=== PATIENT | female | born 1985 | race Hispanic/Latino ===

== ENCOUNTER 2017-11-07 01:40 | Emergency (ER) | payer BC ==
[2017-11-07] MEDS ORDERED: TDAP Vaccine 0.5 mL Syr IM ONE (02:21)
[2017-11-07 02:49] LABS: BASO # 0.04 K/mm3 (0.0-2.0); BASO % 0.7 % (0.0-3.0); EOS # 0.1 (0.0-0.7); GRAN # 2.19 (1.4-6.5); GRAN % 37.7 % (50.0-68.0); HEMOGLOBIN 13.7 g/dL (12.0-16.0); LYMPH # 3.2 (1.2-3.4); LYMPH % 54.8 % (22.0-35.0); MEAN CELL VOLUME 89.3 fl (80.0-105.0); MEAN CORPUSCULAR HEMOGLOBIN 30.5 pg (25.0-35.0); MEAN CORPUSCULAR HGB CONC 34.2 g/dl (31.0-37.0); MEAN PLATELET VOLUME 10.9 fl (7.0-11.0); MONO # 0.3 (0.1-0.6); MONO % 5.8 % (1.0-6.0); RBC 4.49 10^6/uL (3.5-6.1); RED CELL DISTRIBUTION WIDTH 12.6 % (11.5-14.5); WHITE BLOOD COUNT 5.8 10^3/ul (4.5-11.0)
--- NOTE | 2017-11-07 03:01 | ED PDOC ---
Arrival/HPI - General Chief Complaint: Trauma Time Seen by Provider: 11/07/17 02:13 Historian: Patient, EMS, Police - History of Present Illness Narrative History of Present Illness (Text): 11/07/17 02:58 A 32 year old female, with no known past medical history, is brought into the emergency department by [facility] s/p fall at a bar sustaining a laceration to the posterior head. Patient notes that she wants to go home and is feeling better. Patient does not recall her last tetanus shot. The patient denies fevers, chills, headache, dizziness, sore throat, cough, chest pain, shortness of breath, dyspnea on exertion, abdominal pain, nausea, vomiting, diarrhea, neck/back pain, urinary/bowel changes or any other complaint. Time/Duration: Prior to Arrival Symptom Onset: Sudden Symptom Course: Unchanged Activities at Onset: Rest, Light Context: Other (Bar) Past Medical History - Provider Review Nursing Documentation Reviewed: Yes - Psychiatric Hx Substance Use: No - Surgical History Hx Tonsillectomy: Yes Family/Social History - Physician Review Nursing Documentation Reviewed: Yes Family/Social History: No Known Family HX Smoking Status: Unknown If Ever Smoked Hx Alcohol Use: Yes Hx Substance Use: No Allergies/Home Meds Allergies/Adverse Reactions: Allergies No Known Allergies Allergy (Verified 11/07/17 01:46) Home Medications: Home Meds Medication Instructions Recorded Confirmed Unobtainable 11/07/17 11/07/17 Review of Systems - Physician Review All systems were reviewed & negative as marked: Yes - Review of Systems Constitutional: absent: Fevers Respiratory: absent: SOB, Cough Cardiovascular: absent: Chest Pain, HALL[place] Gastrointestinal: absent: Abdominal Pain, Stool Changes, Diarrhea, Nausea, Vomiting Genitourinary Female: absent: Urine Output Changes Musculoskeletal: absent: Back Pain, Neck Pain Skin: Laceration (Laceration to posterior head.) Neurological: absent: Headache, Dizziness Physical Exam Vital Signs Reviewed: Yes Vital Signs Temp Pulse Resp BP Pulse Ox 11/07/17 14:08 98.1 F 94 H 19 99 11/07/17 11:40 88 19 116/79 97 11/07/17 09:05 98.0 F 92 H 19 98 11/07/17 06:46 88 18 123/64 98 11/07/17 04:47 90 20 120/60 99 11/07/17 02:12 98.1 F 100 H 20 112/60 100 Temperature: Afebrile Blood Pressure: Normal Pulse: Tachycardic Respiratory Rate: Normal Appearance: Positive for: Well-Appearing, Non-Toxic, Comfortable Pain Distress: None Mental Status: Positive for: Alert and Oriented X 3 - Systems Exam Head: Present: Normocephalic, Laceration (3 cm laceration to posterior scalp. Vertical. Linear.) Pupils: Present: PERRL Extroacular Muscles: Present: EOMI Conjunctiva: Present: Normal Mouth: Present: Moist Mucous Membranes Neck: Present: Normal Range of Motion Respiratory/Chest: Present: Clear to Auscultation, Good Air Exchange. No: Respiratory Distress, Accessory Muscle Use Cardiovascular: Present: Regular Rate and Rhythm, Normal S1, S2. No: Murmurs Abdomen: No: Tenderness, Distention, Peritoneal Signs Back: Present: Normal Inspection Upper Extremity: Present: Normal Inspection. No: Cyanosis, Edema Lower Extremity: Present: Normal Inspection. No: Edema Neurological: Present: GCS=15, CN II-XII Intact, Speech Normal Skin: Present: Warm, Dry, Normal Color. No: Rashes Psychiatric: Present: Alert, Oriented x 3, Intoxicated Medical Decision Making ED Course and Treatment: 11/07/17 03:03 Impression: A 32 year old female is brought into the emergency department s/p fall with laceration to back of head. Patient with unknown tetanus status. Will seek labs and imaging. Plan: -- Head CT -- Cervical Spine CT -- Labs -- Haldol and Boostrix Vaccine -- Reassess and disposition Prior Visits: Notes and results from previous visits were reviewed. Progress Notes: 11/07/17 03:05: Patient being uncooperative with staff, wanting to leave, clearly intoxicated. Restraints and Haldol ordered. CT Cervical Spine Without Intravenous Contrast EXAM DATE/TIME: 11/07/2017 2:16 AM Dictated and Authenticated by: René George MD 11/07/2017 5:22 AM Eastern Time ([place] & [place]) IMPRESSION: No acute findings. CT Head Without Intravenous Contrast EXAM DATE/TIME: 11/07/2017 2:16 AM Dictated and Authenticated by: René George MD 11/07/2017 5:21 AM Eastern Time ([place] & [place]) IMPRESSION: No acute findings. PROCEDURE: LACERATION REPAIR Performed by the emergency provider Location: posterior scalp Length: 3 cm Description: clean wound edges, no foreign bodies Distal CMS: Normal. No deficits. Neurovascularly intact. Anesthesia: Lidocaine 1% w/ epi Preparation: The wound was cleaned with NS and [place]. The area was prepped and draped in the usual sterile fashion. Exploration: The wound was explored and no foreign bodies were found. Procedure: The wound was closed with zoe loose} approximation. In total, 9 were used. Post-Procedure: Good closure and hemostasis. The patient tolerated the procedure well and there were no complications. CSM remains intact. Post procedure dressing applied 11/07/17 06:35 clears @ 1400 will sign out to oncoming physician. 11/07/17 06:37 - Lab Interpretations Lab Results: 11/07/17 02:25 11/07/17 02:25 Lab Results 11/07/17 02:25: Beta HCG, Quant < 2.39, Alcohol, Quantitative 394 H* 11/07/17 02:25: Sodium 152 H, Potassium 4.4, Chloride 108 H, Carbon Dioxide 28, Anion Gap 21 H, BUN 11, Creatinine 0.6 L, Est GFR ( Amer) > 60, Est GFR ( Non-Af Amer) > 60, Random Glucose 94, Calcium 10.1, Total Bilirubin 0.2, AST 29 , ALT 20, Alkaline Phosphatase 56, Total Protein 8.1, Albumin 4.9 H, Globulin 3.2, Albumin/Globulin Ratio 1.5 11/07/17 02:25: WBC 5.8, RBC 4.49, Hgb 13.7, Hct 40.1, MCV 89.3, MCH 30.5, MCHC 34.2, RDW 12.6, Plt Count 193, MPV 10.9, Gran % 37.7 L, Lymph % (Auto) 54.8 H, [place] % (Auto) 5.8, Eos % (Auto) 1.0 L, Baso % (Auto) 0.7, Gran # 2.19, Lymph # ( Auto) 3.2, [place] # (Auto) 0.3, Eos # (Auto) 0.1, Baso # (Auto) 0.04 11/07/17 01:46: POC Glucose (mg/dL) 86 I have reviewed the lab results: Yes - RAD Interpretation Radiology Orders: 11/07/17 02:16 CERVICAL SPINE W/O CONTRAST [CT] Stat HEAD W/O CONTRAST [CT] Stat - Medication Orders Current Medication Orders: Discontinued Medications Acetaminophen (Tylenol 325mg Tab) 650 mg PO STAT STA Stop: 11/07/17 12:24 Last Admin: 11/07/17 12:25 Dose: 650 mg MAR Pain/Vitals Document 11/07/17 12:25 [email or web address] (Rec: 11/07/17 12:26 [email or web address] [id number]) Pain Reassessment Is This A Pain ReAssessment? No Sleep Is patient sleeping during reassessment? No Presence of Pain Presence of Pain Yes Pain Scale Used Pain Scale Used Numeric Location Pain Location Body Conservation Engineer Description Constant Intensity 7 Scale Used Numeric Pain Behavior Facial Grimacing Aggravating Factors Changing Position Alleviating Factors Medication Haloperidol Lactate (Haldol) 5 mg IM STAT STA PRN Reason: Protocol Stop: 11/07/17 02:16 Last Admin: 11/07/17 05:03 Dose: Lidocaine/Epinephrine (Lidocaine/Epi 1% 1:302615 20 Ml) 1 ml IJ ONCE ONE Stop: 11/07/17 05:30 Tetanus/Reduced Diphtheria/Acell Pertussis (Boostrix Vaccine Inj) 0.5 ml IM .ONCE ONE Stop: 11/07/17 02:22 Last Admin: 11/07/17 05:12 Dose: - Scribe Statement The provider has reviewed the documentation as recorded by the Scribe Yudi Tellez Provider Scribe Attestation: All medical record entries made by the Scribe were at my direction and personally dictated by me. I have reviewed the chart and agree that the record accurately reflects my personal performance of the history, physical exam, medical decision making, and the department course for this patient. I have also personally directed, reviewed, and agree with the discharge instructions and disposition. Disposition/Present on Arrival - Present on Arrival Any Indicators Present on Arrival: No History of DVT/PE: No History of Uncontrolled Diabetes: No Urinary Catheter: No History of Decub. Ulcer: No History Surgical Site Infection Following: None - Disposition Have Diagnosis and Disposition been Completed?: Yes Diagnosis: Laceration of scalp, Alcohol intoxication, Head injury Disposition: HOME/ ROUTINE Disposition Time: 07:00 (signed out) Patient Plan: Other (signed out) Condition: GOOD Discharge Instructions (ExitCare): Alcohol Use - When Is Drinking a Problem?, Closed Head Injury (DC), Laceration Repair With Zoe (DC), Headache, Adult ( DC), Alcohol Abuse and Alcoholism (DC) Additional Instructions: For any headaches, any nausea or vomiting, any tremors or shakes, any chest pain or palpitations, any lightheadedness or dizziness, any unsteadiness, any back pain, any abdominal pain, any bloody urine or stool, any redness or bleeding or pus or drainage, any persistent or worsening symptoms, get rechecked. Follow-up with your physician or return to ER in 5-7 days for staple removal. Take tylenol as needed for pain. Referrals: FAMILY PROVIDER,NO [Primary Care Provider] - Follow up with primary Forms: [employer] ([place])
[2017-11-07 03:06] LABS: ALB/GLOB RATIO 1.5 (1.1-1.8); ALBUMIN 4.9 g/dL (3.0-4.8); ALT/SGPT 20 U/L (7-56); AST/SGOT 29 U/L (14-36); BLOOD UREA NITROGEN 11 mg/dL (7-21); CALCIUM 10.1 mg/dL (8.4-10.5); GFR NON-AFRICAN AMERICAN > 60
[2017-11-07] MEDS ORDERED: Lidocaine/Epi 1% 1:100000 20 ML IJ ONE (05:29)
--- NOTE | 2017-11-07 07:52 | ED PDOC ---
Physical Exam Vital Signs Temp Pulse Resp BP Pulse Ox 11/07/17 11:40 88 19 116/79 97 11/07/17 09:05 98.0 F 92 H 19 98 11/07/17 06:46 88 18 123/64 98 11/07/17 04:47 90 20 120/60 99 11/07/17 02:12 98.1 F 100 H 20 112/60 100 Medical Decision Making ED Course and Treatment: 11/07/17 07:05 Case endorsed to me by Dr. Drew Galicia. Pending Sobriety, reassess, and disposition. 11/07/17 13:00 On re-evaluation, patient is complaining of a posterior headache. On re- examination, patient has a scalp laceration posteriorly that has been stapled on the prior shift. Reviewed Head CT performed which was unremarkable. Patient is also complaining of mild nausea, but denies any neck pain, chest pain, or shortness of breath. Patient is not tremulous or tachycardic. Patient denies any Suicidal Ideation, or Homicidal Ideation. Plan is to continue observation and monitor symptoms after administering Tylenol. 11/07/17 14:05 Re-examination. Headache significantly improved after tylenol. No further nausea. She is pleasant and cooperative. She has normal speech. Normal finger to nose. NO slurred speech. No focal weakness or gait disturbance. No tremors or shaking. Patient is noted to have no suicidal or homicidal ideation and wishes to go home. She has been informed of all labs, treatment, and imaging study results. Hypernatremia noted on prior ordered labs although I feel this was somewhat related to patient's elevated alcohol level and she is asymptomatic on re-evaluation, eating, with no nausea. She is tolerating oral intake and neurologically intact. Have stressed need for close follow-up with PMD or neurologist for any persistent headaches. Advised staple removal in 5-7 days. 11/07/17 14:46 - Lab Interpretations Lab Results: 11/07/17 02:25 11/07/17 02:25 Lab Results 11/07/17 02:25: Beta HCG, Quant < 2.39, Alcohol, Quantitative 394 H* 11/07/17 02:25: Sodium 152 H, Potassium 4.4, Chloride 108 H, Carbon Dioxide 28, Anion Gap 21 H, BUN 11, Creatinine 0.6 L, Est GFR ( Amer) > 60, Est GFR ( Non-Af Amer) > 60, Random Glucose 94, Calcium 10.1, Total Bilirubin 0.2, AST 29 , ALT 20, Alkaline Phosphatase 56, Total Protein 8.1, Albumin 4.9 H, Globulin 3.2, Albumin/Globulin Ratio 1.5 11/07/17 02:25: WBC 5.8, RBC 4.49, Hgb 13.7, Hct 40.1, MCV 89.3, MCH 30.5, MCHC 34.2, RDW 12.6, Plt Count 193, MPV 10.9, Gran % 37.7 L, Lymph % (Auto) 54.8 H, [place] % (Auto) 5.8, Eos % (Auto) 1.0 L, Baso % (Auto) 0.7, Gran # 2.19, Lymph # ( Auto) 3.2, [place] # (Auto) 0.3, Eos # (Auto) 0.1, Baso # (Auto) 0.04 11/07/17 01:46: POC Glucose (mg/dL) 86 - RAD Interpretation Radiology Orders: 11/07/17 02:16 CERVICAL SPINE W/O CONTRAST [CT] Stat HEAD W/O CONTRAST [CT] Stat - Medication Orders Current Medication Orders: Discontinued Medications Acetaminophen (Tylenol 325mg Tab) 650 mg PO STAT STA Stop: 11/07/17 12:24 Last Admin: 11/07/17 12:25 Dose: 650 mg MAR Pain/Vitals Document 11/07/17 12:25 CAST (Rec: 11/07/17 12:26 [facility] [id number]) Pain Reassessment Is This A Pain ReAssessment? No Sleep Is patient sleeping during reassessment? No Presence of Pain Presence of Pain Yes Pain Scale Used Pain Scale Used Numeric Location Pain Location Body Automobile Insurance Claim Examiner Description Constant Intensity 7 Scale Used Numeric Pain Behavior Facial Grimacing Aggravating Factors Changing Position Alleviating Factors Medication Haloperidol Lactate (Haldol) 5 mg IM STAT STA PRN Reason: Protocol Stop: 11/07/17 02:16 Last Admin: 11/07/17 05:03 Dose: Lidocaine/Epinephrine (Lidocaine/Epi 1% 1:207516 20 Ml) 1 ml IJ ONCE ONE Stop: 11/07/17 05:30 Tetanus/Reduced Diphtheria/Acell Pertussis (Boostrix Vaccine Inj) 0.5 ml IM .ONCE ONE Stop: 11/07/17 02:22 Last Admin: 11/07/17 05:12 Dose: - Scribe Statement The provider has reviewed the documentation as recorded by the Hailee Sanchez Provider Scribe Attestation: All medical record entries made by the Areliibjoanna were at my direction and personally dictated by me. I have reviewed the chart and agree that the record accurately reflects my personal performance of the history, physical exam, medical decision making, and the department course for this patient. I have also personally directed, reviewed, and agree with the discharge instructions and disposition. Disposition/Present on Arrival - Present on Arrival Any Indicators Present on Arrival: No History of DVT/PE: No History of Uncontrolled Diabetes: No Urinary Catheter: No History of Decub. Ulcer: No History Surgical Site Infection Following: None - Disposition Have Diagnosis and Disposition been Completed?: Yes Diagnosis: Laceration of scalp, Alcohol intoxication, Head injury Disposition: HOME/ ROUTINE Disposition Time: 14:08 Patient Plan: Discharge Condition: GOOD Discharge Instructions (ExitCare): Laceration Repair With Zoe (DC), Closed Head Injury (DC), Headache, Adult (DC), Alcohol Use - When Is Drinking a Problem ?, Alcohol Abuse and Alcoholism (DC) Additional Instructions: For any headaches, any nausea or vomiting, any tremors or shakes, any chest pain or palpitations, any lightheadedness or dizziness, any unsteadiness, any back pain, any abdominal pain, any bloody urine or stool, any redness or bleeding or pus or drainage, any persistent or worsening symptoms, get rechecked. Follow-up with your physician or return to ER in 5-7 days for staple removal. Take tylenol as needed for pain. Referrals: FAMILY PROVIDER,NO [Primary Care Provider] - Follow up with primary Forms: [employer] ([place])
[2017-11-07 09:37] VITALS: RESP 19
--- NOTE | 2017-11-07 09:37 | CT ---
Date of service: 11/07/2017 PROCEDURE: CT HEAD WITHOUT CONTRAST. HISTORY: fall on etoh COMPARISON: None available. TECHNIQUE: Axial computed tomography images were obtained through the head/brain without intravenous contrast. Radiation dose: Total exam DLP = 768 mGy-cm. This CT exam was performed using one or more of the following dose reduction techniques: Automated exposure control, adjustment of the mA and/or kV according to patient size, and/or use of iterative reconstruction technique. FINDINGS: HEMORRHAGE: No intracranial hemorrhage. BRAIN: No mass effect or edema. No atrophy or chronic microvascular ischemic changes. VENTRICLES: Unremarkable. No hydrocephalus. CALVARIUM: Unremarkable. PARANASAL SINUSES: Unremarkable as visualized. No significant inflammatory changes. MASTOID AIR CELLS: Unremarkable as visualized. No inflammatory changes. OTHER FINDINGS: The report concurs with the preliminary [facility] report IMPRESSION: No acute findings
--- NOTE | 2017-11-07 09:39 | CT ---
Date of service: 11/07/2017 PROCEDURE: CT Cervical Spine without contrast HISTORY: fall on etoh COMPARISON: None available. TECHNIQUE: Axial computed tomography images were obtained of the cervical spine without the use of intravenous contrast. Coronal and sagittal reformatted images were created and reviewed. Radiation dose: Total exam DLP = 311 mGy-cm. This CT exam was performed using one or more of the following dose reduction techniques: Automated exposure control, adjustment of the mA and/or kV according to patient size, and/or use of iterative reconstruction technique. FINDINGS: VERTEBRAE: No fracture. Normal alignment. No destructive bony lesion. DISCS/SPINAL CANAL/NEURAL FORAMINA: No significant central canal or neural foraminal stenosis. Discs heights are grossly preserved. PARASPINAL SOFT TISSUES: Unremarkable. OTHER FINDINGS: The report concurs with the preliminary [facility] report IMPRESSION: Unremarkable CT of the cervical spine.
[2017-11-07 11:42] VITALS: BP 116/79
[2017-11-07 14:09] VITALS: PULSE 94; TEMP 98.1; O2SAT 99
== END 2017-11-07 14:17 | disposition home or self-care (01) ==
LOC: MERGE 01:40 → ED 01:40
DX: F10.129 Alcohol abuse with intoxication, unspecified (principal); S01.01XA Laceration without foreign body of scalp, initial encounter; W19.XXXA Unspecified fall, initial encounter; Y92.89 Other specified places as the place of occurrence of the external cause
CPT/HCPCS: 12002; 70450; 72125; 80053; 82948; 84702; 85025; 99285; G0480